=== PATIENT | female | born 1995 | race Caucasian/White ===

== ENCOUNTER 2017-07-16 15:30 | Emergency (ER) | payer OTHER ==
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
[2017-07-16] MEDS ORDERED: NS 1,000 ML IV ONE (15:38)
[2017-07-16 16:28] LABS: % IMMATURE GRANULYOCYTES 0.3 % (0.0-1.1); ABSOLUTE IMMATURE GRANULOCYTES 0.04 10^3/uL (0.00-0.10); ADD DIFF? NO; ADD MORPH? NO; ADD SCAN? NO; ATYPICAL LYMPHOCYTE FLAG 0 (0-99); FRAGMENT RBC FLAG 40 (0-99); HEMATOCRIT 43.6 % (38.0-47.0); HEMOGLOBIN 15.5 g/dL (12.6-16.3); LEFT SHIFT FLG 0 (0-99); LIPEMIA HEMOLYSIS FLAG 90 (0-99); MEAN CELL HEMOGLOBIN 33.5 pg (27.9-34.1); MEAN CELL HEMOGLOBIN CONCENTR. 35.6 g/dL (32.4-36.7); MEAN CELL VOLUME 94.2 fL (81.5-99.8); MEAN PLATELET VOLUME 9.8 fL (8.7-11.7); PLATELET CLUMPS FLAG 20 (0-99); PLATELET COUNT 377 10^3/uL (150-400); RED BLOOD CELL COUNT 4.63 10^6/uL (4.18-5.33)
[2017-07-16] MEDS ORDERED: IOPAMIDOL (ISOVUE-300) 100 ML BTL ONE (16:29)
[2017-07-16 16:38] LABS: ANION GAP 15 mEq/L (8-16); CALCIUM 9.5 mg/dL (8.5-10.4); CARBON DIOXIDE 22 mEq/l (22-31); CHLORIDE 102 mEq/L (97-110); CREATININE 0.8 mg/dL (0.6-1.0); GLOMERULAR FILTRATION RATE > 60; GLUCOSE 76 mg/dL (70-100); POTASSIUM 4.2 mEq/L (3.5-5.2); SODIUM 139 mEq/L (134-144)
[2017-07-16] MEDS ORDERED: LET GEL TOPICAL 1 EA SYR TP ONE (17:14)
[2017-07-16] MEDS ORDERED: IBUPROFEN 600 MG TAB PO ONE (18:01)
[2017-07-16 19:16] VITALS: BP 136/72; PULSE 85; RESP 18; TEMP 98.4; O2SAT 97
== END 2017-07-16 19:12 | disposition home or self-care (01) ==
LOC: EDUNIT#
DX: S52.125A Nondisplaced fracture of head of left radius, initial encounter for closed fracture (principal); S70.211A Abrasion, right hip, initial encounter; S50.312A Abrasion of left elbow, initial encounter; S70.311A Abrasion, right thigh, initial encounter; S70.312A Abrasion, left thigh, initial encounter; T14.8XXA Other injury of unspecified body region, initial encounter; E86.9 Volume depletion, unspecified; V18.0XXA Pedal cycle driver injured in noncollision transport accident in nontraffic accident, initial encounter; Y92.828 Other wilderness area as the place of occurrence of the external cause; Y93.55 Activity, bike riding
CPT/HCPCS: Q9967

== ENCOUNTER 2018-06-25 11:53 | Inpatient (IN) | payer OTHER ==
[2018-06-25] MEDS ORDERED: NS 1,000 ML IV ONE ×2 (13:21→15:36)
--- NOTE | 2018-06-25 13:21 | EDPHY ---
General - History Smoking Status: Never smoked Time Seen by Provider: 06/25/18 13:07 Narrative: CHIEF COMPLAINT: Flu symptoms, murmur HISTORY OF PRESENT ILLNESS: Patient presents by private vehicle from [facility] with her mother. She complains of fever, back ache, body aches, malaise, runny nose , and that she was told she had a murmur today. She presented to [facility] the above complaints with a reported negative flu test. She was reportedly febrile there, 101.8. She was given ibuprofen at 12:45 p.m.. She states the symptoms have been present since Monday. They have been constant duration. [id number]. No chest pain. Dry, unproductive cough at times. No abdominal pain. No flank pain. Urinary complaints. No rash. She has some mild neck pain but no neck stiffness. She has a mild headache at times. No current headache. There were no other test performed there but they were concerned due to the murmur that was not appreciated prior to today. Denies any history of IV drug use. No recent dental surgery. No history of endocarditis or pericarditis. No other associated complaints or modifying factors. REVIEW OF SYSTEMS: 10 systems were reviewed and negative with the exception of the elements mentioned in the history of present illness. PCP: [facility] at SPECIALISTS: None PAST MEDICAL HISTORY: Infectious mononucleosis, anxiety, depression, anorexia, hip labrum injury PAST SURGICAL HISTORY: Labral repair SOCIAL HISTORY: Nonsmoker. 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 FAMILY HISTORY: Noncontributory EXAMINATION: General Appearance: Alert, no distress Head: normocephalic, atraumatic Eyes: Pupils equal and round, no conjunctival pallor or injection ENT, Mouth: Mucous membranes moist. Airway patent Neck: Normal inspection, supple, non-tender Respiratory: Lungs are clear to auscultation Cardiovascular: Regular rate and rhythm. Mild systolic murmur. Gastrointestinal: Abdomen is soft and nontender Back: Mild left-sided CVA tenderness. No midline tenderness. Neurological: A&O, nonfocal, normal gait Skin: Warm and dry, no rash Extremities: Nontender, no pedal edema Psychiatric: Mood and affect normal DIFFERENTIAL DIAGNOSES: Including but not limited to influenza, infectious mononucleosis, pharyngitis, UTI, pyelonephritis, pericarditis, myositis, endocarditis MDM: 1:20 p.m. Flu-like symptoms with reported fever at home, and patient was sent to our facility due to a new murmur auscultated at [facility] at earlier today. She is afebrile here. She is mildly tachypneic. She is not tachycardic and does not meet SIRS criteria. Abdominal exam is benign. Lungs are clear. The laboratory studies and chest x-ray ordered. Urinalysis ordered. I have discussed with Dr. Montesinos, and he will evaluate the patient. 2:00 p.m. CBC does reveal leukocytosis with a left shift, and urinalysis does reveal evidence of infection. Pyelonephritis is likely given the patient's complaint low back pain her fever and general malaise. 2:15 p.m. Patient has been evaluated by Dr. Montesinos. He has also consulted Infectious Disease and discussed the case with Dr. Murphy. Dr. Murphy will come evaluate the patient in the emergency department. She remains well-appearing and nontoxic. 2:[address] Montesinos has consulted Cardiology and echocardiogram has been ordered. 3:00 p.m. Echocardiogram has been completed but not yet interpreted. Patient remains awake and alert, no acute distress. Vital signs are stable with mild tachycardia. 3:35 p.m. Patient re-evaluated. She is now tachycardic with a heart rate of 115-120 beats per minute. She was not tachycardic at time of arrival. She is complaining of chills and shaking, and I have rechecked her temperature myself orally. It is 39.3 C. I have ordered 2nd L of IV fluid, IV pain medication and oral Flexeril at the request of patient mother. I do feel she will require admission the hospital at this time. Both patient and her mother comfortable this plan. 3:45 p.m. Case discussed with hospitalist Dr. Escobar Curiel. She will admit the patient to her service. She is admitted in stable condition. IV antibiotics were commenced after blood cultures. Second liter IV fluid is commenced. She is awake and alert. She is in no acute distress. Results of the echocardiogram are pending. SUPERVISION: Patient was evaluated and examined in conjunction with my secondary supervising physician as documented. We have both examined the patient. CONSULTATION: Infectious disease, Dr. Murphy [employer], Dr. Gonzalez ([facility]) Medical Decision Makin-lead EKG interpreted by me; official reading is in computer system. My interpretation is sinus rhythm rate 88 with probable early repolarization, normal intervals. PHYSICIAN DOCUMENTATION: The patient was evaluated and managed by the Physician Medical Lab Scientist and myself. I have reviewed the chart and agree with the findings and plan of care as documented. In addition, I examined the patient myself at 1445. History confirmed as fever and chills, back pain starting earlier middle of this week. Physical findings as follows: Systolic 2/6 murmur. 1407: Discussed with Dr. Murphy from ID, recommends blood cultures and echocardiogram, he will come to see her in the emergency department. 1420: Discussed with Dr. Gonzalez, echo ordered. 1445: Patient informed of plan, echo in progress. Seen by infectious disease Dr. Murphy in the emergency department. Admission for continued tachycardia in the setting of fever, probable pyelonephritis. I am the secondary supervising physician. (Donato Montesinos) - Diagnostics Imaging Results: Imaging Impressions Chest X-Ray 06/25/18 13:22 Impression: Clear lungs. No pneumonia or effusion. - Objective Vital Signs: Initial Vital Signs Temperature (C) 36.8 C 06/25/18 12:07 Heart Rate 96 06/25/18 12:07 Respiratory Rate 22 H 06/25/18 12:07 Blood Pressure 130/72 H 06/25/18 12:07 O2 Sat (%) 97 06/25/18 12:07 O2 Delivery Mode Room Air Allergies/Adverse Reactions: No Known Allergies Allergy (Unverified 06/25/18 12:09) Home Medications: Medication Instructions Recorded Lexapro 07/16/17 Lo Loestrin Fe 1-10 Tablet 07/16/17 Laboratory Results: Laboratory Results 06/25/18 13:35 06/25/18 13:35 06/25/18 06/25/18 06/25/18 13:35 13:35 13:35 WBC RBC Hgb Hct MCV MCH MCHC RDW Plt Count MPV Neut % (Auto) Lymph % (Auto) Blanco % (Auto) Eos % (Auto) Baso % (Auto) Nucleat RBC Rel Count Absolute Neuts (auto) Absolute Lymphs (auto) Absolute Monos (auto) Absolute Eos (auto) Absolute Basos (auto) Absolute Nucleated RBC Immature Gran % Immature Gran # Sodium 138 mEq/L mEq/L (135-145) Potassium 4.0 mEq/L mEq/L (3.3-5.0) Chloride 102 mEq/L mEq/L (97-110) Carbon Dioxide 26 mEq/l mEq/l (22-31) Anion Gap 10 mEq/L mEq/L (8-16) BUN 10 mg/dL mg/dL (7-23) Creatinine 0.7 mg/dL mg/dL (0.6-1.0) Estimated GFR > 60 Glucose 85 mg/dL mg/dL (70-100) Calcium 9.0 mg/dL mg/dL (8.5-10.4) Total Bilirubin 0.9 mg/dL mg/dL (0.1-1.4) Conjugated Bilirubin 0.3 mg/dL mg/dL (0.0-0.5) Unconjugated Bilirubin 0.6 mg/dL mg/dL (0.0-1.1) AST 34 IU/L IU/L (14-46) ALT 32 IU/L IU/L (9-52) Alkaline Phosphatase 69 IU/L IU/L (38-126) Total Protein 6.7 g/dL g/dL (6.3-8.2) Albumin 3.7 g/dL g/dL (3.5-5.0) Beta HCG, Qual NEGATIVE Urine Color Urine Appearance Urine pH Ur Specific [place] Urine Protein Urine Ketones Urine Blood Urine Nitrate Urine Bilirubin Urine Urobilinogen Ur Leukocyte Esterase Urine RBC Urine WBC Ur Epithelial Cells Urine Bacteria Hyaline Casts Urine Mucus Urine Glucose Nasal Influenza A PCR NEGATIVE FOR FLU A (NEGATIVE) Nasal Influenza B PCR NEGATIVE FOR FLU B (NEGATIVE) Monoscreen NEGATIVE (NEGATIVE) Group A Strep Screen NEGATIVE (NEGATIVE) 06/25/18 06/25/18 13:35 12:30 WBC 16.20 10^3/uL H 10^3/uL (3.80-9.50) RBC 4.52 10^6/uL 10^6/uL (4.18-5.33) Hgb 14.8 g/dL g/dL (12.6-16.3) Hct 42.7 % % (38.0-47.0) MCV 94.5 fL fL (81.5-99.8) MCH 32.7 pg pg (27.9-34.1) MCHC 34.7 g/dL g/dL (32.4-36.7) RDW 12.9 % % (11.5-15.2) Plt Count 269 10^3/uL 10^3/uL (150-400) MPV 11.0 fL fL (8.7-11.7) Neut % (Auto) 84.3 % H % (39.3-74.2) Lymph % (Auto) 8.1 % L % (15.0-45.0) Blanco % (Auto) 7.0 % % (4.5-13.0) Eos % (Auto) 0.0 % L % (0.6-7.6) Baso % (Auto) 0.2 % L % (0.3-1.7) Nucleat RBC Rel Count 0.0 % % (0.0-0.2) Absolute Neuts (auto) 13.66 10^3/uL H 10^3/uL (1.70-6.50) Absolute Lymphs (auto) 1.31 10^3/uL 10^3/uL (1.00-3.00) Absolute Monos (auto) 1.14 10^3/uL H 10^3/uL (0.30-0.80) Absolute Eos (auto) 0.00 10^3/uL L 10^3/uL (0.03-0.40) Absolute Basos (auto) 0.03 10^3/uL 10^3/uL (0.02-0.10) Absolute Nucleated RBC 0.00 10^3/uL 10^3/uL (0-0.01) Immature Gran % 0.4 % % (0.0-1.1) Immature Gran # 0.06 10^3/uL 10^3/uL (0.00-0.10) Sodium Potassium Chloride Carbon Dioxide Anion Gap BUN Creatinine Estimated GFR Glucose Calcium Total Bilirubin Conjugated Bilirubin Unconjugated Bilirubin AST ALT Alkaline Phosphatase Total Protein Albumin Beta HCG, Qual Urine Color YELLOW Urine Appearance HAZY Urine pH 6.0 (5.0-7.5) Ur Specific [place] 1.004 (1.002-1.030) Urine Protein NEGATIVE (NEGATIVE) Urine Ketones NEGATIVE (NEGATIVE) Urine Blood 1+ H (NEGATIVE) Urine Nitrate NEGATIVE (NEGATIVE) Urine Bilirubin NEGATIVE (NEGATIVE) Urine Urobilinogen NEGATIVE EU EU (0.2-1.0) Ur Leukocyte Esterase 3+ H (NEGATIVE) Urine RBC 1-3 /hpf /hpf (0-3) Urine WBC 15-25 /hpf H /hpf (0-3) Ur Epithelial Cells TRACE /lpf /lpf (NONE-1+) Urine Bacteria 1+ /hpf H /hpf (NONE SEEN) Hyaline Casts 1-5 /lpf /lpf (0-1) Urine Mucus TRACE /lpf /lpf (NONE-1+) Urine Glucose NEGATIVE (NEGATIVE) Nasal Influenza A PCR Nasal Influenza B PCR Monoscreen Group A Strep Screen Medications Given: Discontinued Medications Acetaminophen (Tylenol) 650 mg PO EDNOW ONE Stop: 06/25/18 15:42 Last Admin: 06/25/18 15:47 Dose: 650 mg Cyclobenzaprine HCl (Flexeril) 10 mg PO EDNOW ONE Stop: 06/25/18 15:42 Last Admin: 06/25/18 15:48 Dose: 10 mg Fentanyl (Sublimaze) 100 mcg IVP EDNOW ONE Stop: 06/25/18 15:42 Last Admin: 06/25/18 15:48 Dose: 100 mcg Sodium Chloride (Ns) 1,000 mls @ 0 mls/hr IV EDNOW ONE; Wide Open PRN Reason: Protocol Stop: 06/25/18 13:22 Last Admin: 06/25/18 13:47 Dose: 1,000 mls Ceftriaxone Sodium/Dextrose (Rocephin 1 Gm (Premix)) 50 mls @ 100 mls/hr IV EDNOW ONE PRN Reason: Protocol Stop: 06/25/18 14:58 Last Admin: 06/25/18 15:10 Dose: 50 mls Sodium Chloride (Ns) 1,000 mls @ 0 mls/hr IV EDNOW ONE; Wide Open PRN Reason: Protocol Stop: 06/25/18 15:37 Last Admin: 06/25/18 15:48 Dose: 1,000 mls Departure - Departure Disposition: [facility] Inpatient Acute Clinical Impression: Acute pyelonephritis Condition: Good
--- NOTE | 2018-06-25 13:37 | CPEKG ---
Test Reason : OPEN Blood Pressure : / mmHG Vent. Rate : 088 BPM Atrial Rate : 088 BPM P-R Int : 126 ms QRS Dur : 087 ms QT Int : 355 ms P-R-T Axes : 043 054 011 degrees QTc Int : [address] elev, probable normal early repol pattern Confirmed by Donato Montesinos ([id number]) on 06/25/2018 1:36:48 PM Referred By: Confirmed By:Donato Montesinos
[2018-06-25 13:57] LABS: PLATELET COUNT 269 10^3/uL (150-400)
[2018-06-25] MEDS ORDERED: ACETAMINOPHEN 325 MG TAB PO ONE (15:41)
[2018-06-25] MEDS ORDERED: fentaNYL 100 MCG/2 ML INJ IVP ONE (15:41)
[2018-06-25] MEDS ORDERED: CYCLOBENZAPRINE 10 MG TAB PO ONE (15:41)
--- NOTE | 2018-06-25 16:14 | ECHO ---
[email or web address] [address] Main: [phone] Fax: Transthoracic Echocardiogram Name: DAYSI COONEY MR#: [id number] Study Date: 06/25/2018 Study Time: 02:31 PM Date of : 1995 Age: 23 year(s) Height: 175.3 cm (69 in.) Weight: 66.68 kg (147 lb.) BSA: 1.81 m2 Gender: Female Examination: Echo Indication: Heart murmur and fever Image Quality: Contrast: Requested by: Donato Montesinos BP: 137 mmHg/78 mmHg Heart Rate: Rhythm: Indication: Heart murmur and fever Procedure Staff Animal Bounty Hunter: Marylu Hayden RDCS Reading Physician: Lemuel Dunn MD Requesting Provider: Conclusions: Normal size left ventricle. Global hypercontractility of the left ventricle. The ejection fraction is estimated to be 70-75 %. No regional wall motion abnormality. Normal diastolic LV function. There are no significant valvular abnormalities. No transthoracic echocardiographic evidence of vegetations. Measurements: Chambers Valvular Assessment AV/MV Valvular Assessment TV/PV Normal Normal Normal Name Value Range Name Value Range Name Value Range Ao Magali (MM): 2.7 cm (2.2 cm-3.7 AV Vmax: 2.02 m/s (1 m/s-1.7 cm) m/s) IVSd (2D): 0.9 cm (0.6 cm-1.1 AV maxP mmHg ( - ) cm) AV meanP mmHg ( - ) LVDd (2D): 5.0 cm (3.9 cm-5.3 LVOT Vmax: 1.28 m/s (0.7 m/s-1.1 cm) m/s) LVDs (2D): 3.2 cm (2.1 cm-4 NICOLE (Vmax): 1.8 cm2 ( - ) cm) NICOLE (VTI): 1.7 cm ( - ) LVPWd (2D): 0.9 cm ( - ) MV E Vmax: 1.46 m/s ( - ) LVOTd 1.9 cm 1.9 cm mm MV A Vmax: 0.80 m/s ( - ) LVEF (MOD4): 68 % (>=55 %) MV E/A: 1.82 ( - ) EF Range: 70-75 % Continued Measurements: Chambers Valvular Assessment AV/MV Name Value Name Value LADs: 3.0 cm MV E/E' Septal: 14.20 Patient: DAYSI COONEY Study Date: 06/25/2018 Page 1 of 2 02:31 PM LADs Lon.7 cm MV E/E' Lateral: 8.40 LA Area: 19.7 cm2 Additional Vessels Name Value Ao Ascendin.4 cm Findings: Left Ventricle: Normal size left ventricle. No LV hypertrophy. Global hypercontractility of the left ventricle. The ejection fraction is estimated to be 70-75 %. No regional wall motion abnormality. Normal diastolic LV function. Right Ventricle: Normal size right ventricle. Left Atrium: The left atrium is normal in size. Right Atrium: The right atrium is normal in size. Mitral Valve: The mitral valve is normal in appearance and function. Trivial mitral valve regurgitation. Aortic Valve: The aortic valve is normal in appearance and function. The aortic valve is tri-leaflet. AV max PG is 16mmHG. AV mean PG is 9mmHG.. Tricuspid Valve: The tricuspid valve is normal in appearance and function. Pulmonic Valve: The pulmonic valve is normal in appearance and function. Aorta: The aorta is normal. Pericardium: No pericardial effusion. (No Signature Object) Patient: DAYSI COONEY Study Date: 06/25/2018 Page 2 of 2 02:31 PM [id number]
[2018-06-25] MEDS ORDERED: oxyCODONE IR 5 MG TAB PO PRN (17:51)
[2018-06-25] MEDS ORDERED: PROMETHAZINE HCL 25 MG/ML INJ IVP PRN (17:51)
[2018-06-25] MEDS ORDERED: ONDANSETRON DISINTEGRATING 4 MG TAB PO PRN (17:51)
[2018-06-25] MEDS ORDERED: ONDANSETRON 4 MG/2 ML VIAL IVP PRN (17:51)
--- NOTE | 2018-06-25 18:15 | GCON ---
INFECTIOUS DISEASES CONSULTATION DATE OF CONSULTATION: 06/25/2018 REFERRING PHYSICIAN: Donato Montesinos MD REASON FOR CONSULTATION: Fever. HISTORY OF PRESENT ILLNESS: The patient is a 23-year-old female with a past medical history of low b ack pain, whom I am asked to see in consultation for fever, rigors, and back pain. The patient repor ts moving her bed away from the wall on Monday preceding onset of symptoms to allow for exterminatio n of beetles in her residence, at which point in time she developed back pain after moving her bed. The pain was localized in the left lower back. Approximately 2 days after moving her bed, she develo ped onset of fever and shaking chills. This was associated with headache, diffuse myalgias, arthralg ias, and poor oral intake. She also had nasal congestion and mild sore throat. No cough or shortnes s of breath. The patient was seen at [facility] earlier today and noted to have the above symptoms, and on physical examination, a heart murmur was noted, which was not felt to be present previously. This raised concern for endocarditis. The patient did have a routine dental cleaning at the end of A ugust. No preceding valvular disease. The patient has not had dysuria, urgency or frequency. She d oes not note significant nausea, vomiting, diarrhea or abdominal pain. She previously has had pain i n the left lower back, which was relieved with skin care consultant. 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 Recent triathlons have included swimming and reservoirs in [place], [place], and [place]. She does note occasional swallowing of water. She has not noted any injuries in terms of cuts or scrapes. She does pick at h er skin periodically. No oral or vaginal ulcerations. No ill contacts. Upon presentation in the emergency department, the patient did have a temperature recorded at 39.3, w ith tachycardia. Echocardiogram was performed in the emergency department, which shows an ejection f raction of 70-75 percent, without regional wall motion abnormality; no significant valvular abnormali ties or vegetations were noted. The patient's chest x-ray showed no infiltrate. Blood testing showe d evidence of leukocytosis with left shift, with normal chemistry profile. Urinalysis showed 15-25 w janny blood cells and 1+ bacteria. Influenza testing by PCR was negative. Group A strep screen of th e throat was negative, and mono screen was negative. The patient was given a dose of ceftriaxone emp irically with concern for pyelonephritis and has been admitted for further care. I am now asked to a ssist in her ongoing management. PAST MEDICAL HISTORY: Vitiligo, anorexia, depression/anxiety, history of low back pain, pelvic infla mmatory disease, mononucleosis. Patient notes all of her usual childhood vaccinations. PAST SURGICAL HISTORY: Labral hip repair. MEDICATIONS: Prior to admission: Oral contraceptive, fluvoxamine, clonazepam p.r.n. ALLERGIES: No known drug allergies. SOCIAL HISTORY: Patient does not smoke. She drinks alcohol occasionally and at times in binge fashi on. No drug use. 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 No recent travel. No animal exposure. FAMILY HISTORY: Noncontributory to presentation. REVIEW OF SYSTEMS: Outside that noted in the HPI, the remainder of 10-system review is unremarkable. PHYSICAL EXAMINATION: VITAL SIGNS: Temperature 39.3, heart rate 103, respiratory rate 14, blood pre ssure 126/52, oxygen saturation 97% on room air. GENERAL: Patient is well nourished and well develo ped. She has rigors present and appears ill. HEENT: There is no scleral icterus, conjunctival inje ction, or conjunctival petechiae. Oropharynx shows moist mucous membranes, with dentition being in g ood repair. There is no nasal discharge. There is no tenderness over the sinuses. There is no nasa l discharge. NECK: Supple, without palpable lymphadenopathy or thyromegaly. No point tenderness ov er the C-spine. No meningismus. CHEST: Clear to auscultation bilaterally, without adventitious nadia nds. The respiratory effort is normal. CARDIOVASCULAR: Tachycardic, with a 2/[address] rd throughout. No gallops or rubs are noted. ABDOMEN: Soft, nontender, nondistended. There is no palpable organomegaly. Bowel sounds are present. MUSCULOSKELETAL: There is no cyanosis, clubbing, or edema. There is tenderness over the left sacroiliac joint to palpation. BACK: There is no CVA t enderness bilaterally. SKIN: There are no stigmata of endocarditis. The skin is diffusely warm to palpation. There is a small, healing blood blister over the left 4th toe. No other rashes noted. N EUROLOGIC: Patient is alert and interacts appropriately with examiner. Cranial nerves 2-12 are dewayne sly intact. Sensation is grossly intact. Muscle tone and bulk are normal. LABORATORY DATA: White blood cell count 16.2, hematocrit 42.7, platelets 269, neutrophils 84%. Seru m creatinine 0.7, bicarb 26, AST 34, ALT 32, bilirubin 0.9, alkaline phosphatase 69, albumin 3.7. Be ta HCG is negative. Urinalysis shows 15-25 white blood cells with 1-3 red blood cells and 1+ bacteri a. Influenza testing by PCR is negative. Chest x-ray shows no evidence of pneumonia. Echocardiogram as outlined above. EKG shows ND interval of 0.12. IMPRESSION: Fever and leukocytosis: This is in combination with left-sided sacroiliac pain, raising possibility of sacroiliitis. Infectious considerations of sacroiliitis would include primarily orga nisms spread with concomitant bacteremia, such as Staphylococcus aureus. Brucellosis or tuberculosis also can be associated with sacroiliitis, but patient does not have discrete risk factors for either of these entities. Pyelonephritis remains in the differential diagnosis given pyuria, and potential ly that pain in the sacroiliac region is referred from left flank. Other diagnostic considerations w ould include leptospirosis, although this typically does not cause sacroiliitis, but she is at risk b y swimming in reservoirs. Other pathogens, such as enteric hector could also be acquired by swimming in reservoirs, and rarely, organisms such as salmonella can cause sacroiliitis. Transthoracic echoca rdiogram does not show findings to suggest endocarditis, although this does not fully rule this out b ased on its sensitivity being limited. Other potential considerations would include viral syndrome, although with leukocytosis and left shift seems less likely. RECOMMENDATIONS: 1. Agree with empiric ceftriaxone pending blood and urine cultures. 2. MRI of pelvis to assess further for sacroiliitis or other consideration, such as psoas abscess. 3. Check leptospira antibodies. 4. Check [id number]. 5. Further decision making and diagnostic testing based on blood culture results as potentially thes e will be positive, which will further guide decision making. 6. Thank you for this consultation. We will continue to follow the patient with you. /[id number]/MODL
[2018-06-25] MEDS ORDERED: GADOBUTROL 10 ML VIAL IVP ONE (18:25)
--- NOTE | 2018-06-25 18:46 | GHP ---
DATE OF ADMISSION: 06/25/2018 CHIEF COMPLAINT: Back pain and fevers. HISTORY: This is a 23-year-old female with a past medical history that includes anxiety and depressi on, as well as back pain that has been present for about 1 year, who presents with complaints of feve r, back pain, neck pain, generalized body aches and shaking chills that have been present for about t he last week. The patient notes she has had fevers up to 103 over the last 7 days. She was seen at [facility] where they had concerns that she had a murmur that had not been appreciated in the past an d she was sent to the emergency room for further workup. She denies any abdominal pain, nausea, vomi ting, urinary complaints. She denies any rash. She notes she has some neck pain and headache, but n o confusion and no significant neck stiffness. She denies any history of IV drug use or recent surge ry. She has never had similar symptoms in the past. In terms of her back pain, it is treated genera lly by a chiropractor and has been thought to be a bulging disk, but she is not certain that she has had imaging in the past. PAST MEDICAL HISTORY: Includes: 1. Anxiety. 2. Depression. 3. 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 4. Vitiligo. 5. Elevated LFTs of uncertain etiology. 6. Iron deficiency anemia. 7. Right labral tear. PAST SURGICAL HISTORY: Labral repair. SOCIAL HISTORY: Patient is a nonsmoker. She drinks socially. She denies IV drug use. 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 FAMILY HISTORY: Reviewed and noncontributory. REVIEW OF SYSTEMS: A 10-point review of systems obtained and negative except as per HPI. HOME MEDICATIONS: Include Lexapro and control tablets. ALLERGIES: No known drug allergies. PHYSICAL EXAM: VITAL SIGNS: BP 126/52, heart rate 103, respiratory rate 14, O2 sats 97% on room air , temperature is 39.2. GENERAL: The patient is flushed and ill appearing. She is rigoring in bed. EYES: Anicteric. HENT: Oropharynx clear. NECK: Supple with some mild tenderness in the lateral region, but no clear lymphadenopathy. CARDIOVASCULAR: Tachycardic, regular, systolic murmur appreci ated. ABDOMEN: Soft, nontender. Positive bowel sounds. EXTREMITIES: No clubbing, cyanosis, or ed juan. SKIN: Warm, dry, well perfused. NEURO/PSYCH: Oriented and appropriate. CLINICAL DATA: Labs reviewed notable for white blood cell count of 16.2, hematocrit of 42.7, platele ts of 269. Chemistry including LFTs are unremarkable. Beta HCG is negative. UA shows 3+ leuk joy ase, 15-25 white blood cells, 1+ bacteria. Nasal influenza was negative for flu A and B. Strep scre en was negative. Brown screen was negative. Chest x-ray personally reviewed and interpreted, showing clear lungs. EKG, personally reviewed and interpreted, shows sinus rhythm, rate of 85, early repolarization abnorm ality. Echocardiogram showing EF of 70% to 75%. No regional wall motion abnormality. Valves all normal in appearance without evidence of endocarditis. ASSESSMENT/PLAN: This is a 23-year-old female presenting with sepsis and presumed pyelonephritis. 1. Sepsis, presumed to be urinary source without other clear source identified at this time. She do es have significant back pain, although this has been present for 1 year. She has been started on ce ftriaxone and blood cultures and urine cultures are pending. ID has been consulted. 2. Heart murmur with a normal echocardiogram showing no significant valvular abnormalities and no ve getations. She is noted to be showing global hypercontractility and perhaps that is the reason for h er notable murmur. We will monitor her on telemetry for the time being given her continued tachyarrh ythmia. 3. Back pain. This is relatively severe and somewhat unusual for diagnosis of pyelonephritis. Her pain is more located in the lumbosacral region. Consider imaging of the pelvis to rule out other anthony ology for her infectious process. This was discussed with ID. 4. Disposition: Inpatient status. Given severity of patient's presenting illness, suspect she will need greater than 48-hour stay for evaluation and management of above. 5. Patient is new to my care. Old records reviewed summarized as per HPI and past medical history. Care plan reviewed with patient's mother present at bedside and further history obtained from her. Care plan reviewed with ER physician and infectious disease doctor. /[id number]/MODL
[2018-06-25] MEDS: HYDROCODONE/APAP 5/325 TAB PO PRN (20:06)
[2018-06-25] MEDS: LORazepam 0.5 MG TAB PO PRN (20:09)
[2018-06-25] MEDS ORDERED: clonazePAM 0.5 MG TAB PO PRN (20:15)
[2018-06-26] MEDS: ACETAMINOPHEN 325 MG TAB PO PRN (00:31)
[2018-06-26] MEDS: CYCLOBENZAPRINE 10 MG TAB PO PRN ×3 (00:31→20:52)
[2018-06-26] MEDS: HYDROCODONE/APAP 5/325 TAB PO PRN ×3 (02:05→16:37)
[2018-06-26] MEDS: IBUPROFEN 200 MG TAB PO PRN (02:05)
[2018-06-26] MEDS ORDERED: LIDOCAINE 2% VISCOUS 15 ML UDCUP PO PRN (02:30)
[2018-06-26] MEDS ORDERED: MAG HYDROX/AL HYDROX/SIMETH 30 ML UDCUP PO PRN (02:31)
[2018-06-26] MEDS: NS 1,000 ML IV SCH ×3 (04:10→22:04)
[2018-06-26 04:20] LABS: PLATELET COUNT 235 10^3/uL (150-400)
[2018-06-26] MEDS: ERTAPENEM 1 GM in NS 100 ML IV SCH (08:31)
--- NOTE | 2018-06-26 09:11 | PDMN ---
Medical Necessity Medical necessity: MCG M300 UTI- pyelonephritis with sepsis,- fever , tachycardia, leukocytosis, sig. back pain. fever, neck pain, generalized body aches, shaking, chills, X 7 days. pt also with murmur anticipate > 2 MN ongoing med nec care,-IVF, IV abx, and further eval for above.
[2018-06-26] MEDS ORDERED: MEPERIDINE 25 MG/0.5 ML AMP IVP ONE (10:47)
[2018-06-26] MEDS: ETHINYL ESTRADIOL PO SCH (11:23)
[2018-06-26] MEDS: LEVONORGESTREL PO SCH (11:23)
[2018-06-26] MEDS ORDERED: PHENOL 177 ML THROAT SPRAY PO PRN (12:00)
[2018-06-26] MEDS: guaiFENesin 600 MG TAB.ER PO SCH ×2 (12:40→20:53)
[2018-06-26 12:46] LABS: INR 1.16 (0.83-1.16)
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
--- NOTE | 2018-06-26 16:33 | ASMTCMCOM ---
CM Note CM Note Notes: Patient plan of care reviewed in rounds. 23 year old female admitted via ED with pyelonephritis Mother at bedside. No needs identified at present time. CM available should needs arise. Plan: Likely dc independently when medically cleared for discharge. Date Signed: 06/26/2018 04:33 PM Electronically Signed By:Mini Do RN
[2018-06-26] MEDS: SENNOSIDES/DOCUSATE SODIUM TAB PO SCH (20:52)
[2018-06-26] MEDS: LORazepam 0.5 MG TAB PO PRN (20:53)
[2018-06-27] MEDS: HYDROCODONE/APAP 5/325 TAB PO PRN (01:27)
[2018-06-27] MEDS: NS 1,000 ML IV SCH ×2 (07:34→16:21)
[2018-06-27] MEDS: ERTAPENEM 1 GM in NS 100 ML IV SCH (08:39)
[2018-06-27] MEDS: guaiFENesin 600 MG TAB.ER PO SCH ×2 (08:39→20:56)
[2018-06-27] MEDS: POLYETHYLENE GLYCOL 3350 17 GM PKT PO PRN (08:39)
[2018-06-27] MEDS: SENNOSIDES/DOCUSATE SODIUM TAB PO SCH ×2 (08:44→20:56)
[2018-06-27] MEDS: ACETAMINOPHEN 325 MG TAB PO PRN ×2 (08:52→15:48)
[2018-06-27] MEDS: ETHINYL ESTRADIOL PO SCH ×2 (08:55→15:49)
[2018-06-27] MEDS: LEVONORGESTREL PO SCH ×2 (08:55→15:49)
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
[2018-06-27] MEDS: IBUPROFEN 200 MG TAB PO PRN (13:25)
[2018-06-27 13:40] LABS: GC AMPLIFICATION GENPROBE NEGATIVE (NEGATIVE)
[2018-06-27] MEDS: MAGNESIUM HYDROXIDE 30 ML UDCUP PO PRN (15:48)
[2018-06-27] MEDS: LIDOCAINE 4%/MENTHOL 1% PATCH TD SCH ×2 (16:45→18:30)
[2018-06-27] MEDS: BACILLUS COAGULANS PO SCH (18:27)
[2018-06-27] MEDS: DAILY VITE PO SCH (18:27)
[2018-06-27] MEDS: LORazepam 0.5 MG TAB PO PRN (20:55)
[2018-06-28] MEDS: HYDROCODONE/APAP 5/325 TAB PO PRN (03:15)
[2018-06-28] MEDS: NS 1,000 ML IV SCH (03:16)
[2018-06-28] MEDS: POLYETHYLENE GLYCOL 3350 17 GM PKT PO PRN ×2 (03:39→08:47)
[2018-06-28] MEDS: PATCH REMOVAL 1 EA PATCH TD SCH ×2 (03:41→22:46)
[2018-06-28] MEDS: SENNOSIDES/DOCUSATE SODIUM TAB PO SCH ×2 (08:47→21:07)
[2018-06-28] MEDS: LIDOCAINE 4%/MENTHOL 1% PATCH TD SCH (08:47)
[2018-06-28] MEDS: MAGNESIUM HYDROXIDE 30 ML UDCUP PO PRN (08:47)
[2018-06-28] MEDS: guaiFENesin 600 MG TAB.ER PO SCH ×2 (08:48→21:09)
[2018-06-28] MEDS: LEVONORGESTREL PO SCH (08:57)
[2018-06-28] MEDS: ETHINYL ESTRADIOL PO SCH (08:57)
[2018-06-28] MEDS: DAILY VITE PO SCH (08:58)
[2018-06-28] MEDS: ACETAMINOPHEN 325 MG TAB PO PRN ×2 (09:05→21:07)
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
[2018-06-28] MEDS: LORazepam 0.5 MG TAB PO PRN (11:08)
--- NOTE | 2018-06-28 11:16 | ASMTLCPROG ---
Notes Note: Notes: Responded to TLC Stat request/page for this pt. Spoke briefly with nurse, Jessica for clarifying criteria for a TLC Stat request. Asked nurse if pt had verbalized any suicidal ideation/intent/plans to harm self and nurse reported that pt did not. Asked nurse if pt had verbalized any homicidal ideation/intent/plans to harm someone else and nurse reported that pt did not. Clarified [facility] protocol/policy regarding TLC Stat requests. [facility] arrived on unit with copy of protocol for educating purposes. Date Signed: 06/28/2018 11:14 AM Electronically Signed By:Sagar Malone
[2018-06-28] MEDS: BACILLUS COAGULANS PO SCH ×2 (11:20→21:09)
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
[2018-06-29 08:10] VITALS: BP 125/73
[2018-06-29] MEDS: SENNOSIDES/DOCUSATE SODIUM TAB PO SCH (08:39)
[2018-06-29] MEDS: DAILY VITE PO SCH (08:40)
[2018-06-29] MEDS: BACILLUS COAGULANS PO SCH (08:42)
[2018-06-29] MEDS: LEVONORGESTREL PO SCH (08:42)
[2018-06-29] MEDS: ETHINYL ESTRADIOL PO SCH (08:42)
[2018-06-29] MEDS ORDERED: SULFAMETHOX/TMP 800/160 MG 1 TAB PO SCH (09:30)
[2018-06-29] MEDS: guaiFENesin 600 MG TAB.ER PO SCH (09:31)
[2018-06-29] MEDS: LIDOCAINE 4%/MENTHOL 1% PATCH TD SCH (09:31)
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
--- NOTE | 2018-06-29 10:25 | ASMTLACE ---
BAYLEE Length of stay for Answers: 3 days current admission Acuity / Level of Answers: Yes Care: Did the patient have an inpatient admission? Comorbidities - select Answers: Other Notes: PID, pylonephritis all that apply # of Emergency department Answers: 1-2 visits in the last 6 months Social determinants Answers: Mental health diagnosis (anxiety, depression, pers onality disorders, etc.) Score: 11 Date Signed: 06/29/2018 10:24 AM Electronically Signed By:Mini Do RN
--- NOTE | 2018-06-29 10:28 | ASMTCMCOM ---
CM Note CM Note Notes: Patient has been medically cleared for discharge to home. She was provided resources for follow up for mental health at her school. No other needs identified from a CM perspective at this time. Independent. Plan: Dc to home. Date Signed: 06/29/2018 10:27 AM Electronically Signed By:Mini Do RN
--- NOTE | 2018-07-03 12:18 | PQFORM ---
PHYSICIAN QUERY FORM Needs Your Response This query form is being sent to you to assure this patient record is coded properly. Please respond to the question below: [employer]ER QUESTION: Dear Dr. Calvillo, In reviewing this patients medical record, it is noted that the patient held the diagnosis of "sepsis." Patient presented to ER with Fever, malaise with a WBC of 16.20. In the H&P, patient was diagnosed with "sepsis and presumed pyelonephritis." In the Medical Necessity note patient had "UTI w/ sepsis." In the Progress notes dated 06/26-06/28 patient was noted to have "sepsis due to E Coli." After study, should the diagnosis of "Sepsis" be included in the Discharge Summary? __x___ Yes No Unable to determine Other more appropriate diagnosis (please specify) Thank you [facility]. [phone] INSTRUCTIONS FOR RESPONSE: Answer question by clicking on the "Edit Document" button. Move cursor to area below the stars. When complete, hit "Save." Click on the "Sign" button, then click "Sign" again. Type in your PIN and hit "Enter." MTDD
== END 2018-06-29 10:56 | disposition home or self-care (01) | DRG 872 ==
LOC: F1N 17:28
PROVIDERS: ADMIT Internal Medicine; ATTEND Internal Medicine
DX: A41.51 Sepsis due to Escherichia coli [E. coli] (principal); N10 Acute pyelonephritis; E86.9 Volume depletion, unspecified; F41.8 Other specified anxiety disorders; L80 Vitiligo; Z91.410 Personal history of adult physical and sexual abuse
CPT/HCPCS: 86720-90; 86812-90; 96365; A9585; J0696; J1335; J2175; J2405; J3010

== ENCOUNTER 2018-10-22 10:08 | Emergency (ER) | payer OTHER ==
--- NOTE | 2018-10-22 11:03 | EDPHY ---
General - History Smoking Status: Current every day smoker Time Seen by Provider: 10/22/18 11:02 Narrative: CLINICAL IMPRESSION: Anxiety ASSESSMENT/PLAN: Patient is a 23-year-old female with a significant history of PTSD, anxiety and depression who presents with increased anxiety. Patient is afebrile and nontoxic -appearing, she is in no acute distress. Physical examination is unremarkable. Her vital signs were reviewed and no findings to suggest bacterial illness. negative, drug screen negative. Patient is here voluntarily and requesting behavioral health services. Patient has been under a significant amount of stress, was unable to get into her psychiatrist in his specifically looking for recommendations in changing her medication therapy as well as a work note. Patient was formally seen and evaluated by [facility] in the emergency department, she has no SI or HI. After formal evaluation, the patient was still able to contract for safety with a plan for close follow-up at [facility] as well as her psychiatrist; no indication for inpatient admission. On repeat exam the patient is well appearing with no additional concerns and is comfortable with plan. She is present with her mother, she does not feel in imminent danger to self or others. She understands that medication changes will need to be done under the direction of her psychiatrist. Return precautions discussed- she will return for worsening anxiety, SI, HI, increased or uncontrolled behaviors or for any other concerning symptom. Patient verbalizes understanding and is in agreement with plan. DIFFERENTIAL DX: Anxiety, depression, PTSD, insomnia, psychosis, intoxication ED COURSE: 1110: Case discussed with Dr. Jackson 1430: Discussed with . No findings to warrant inpatient admission. [facility] placed phone call to [facility] in arranged close follow-up. Unable to get in touch with patient's psychiatrist on multiple occasions. 1500: On re-evaluation the patient is well-appearing, she is present with her mother. Behavioral health consultation has been completed. Another phone call has been placed by them to their current psychiatrist, they understand they are able to go to [facility] into their walk-in clinic at any time. Patient was provided a work note for several days however understands the importance of follow-up for ongoing care and excuses. 1510: Discussed with Dr. Jackson CHIEF COMPLAINT: Anxiety and depression HPI: Patient is a 23-year-old female who presents to the emergency department with reports of escalating anxiety. Patient endorses significant stress, significant history of PTSD with escalating anxiety and difficulty sleeping. 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 Patient tried to get into her psychiatrist this morning however was unable to get an appointment. Patient discloses over the last month she has been on a new medication lamotrigine, she feels this medication is not helping her and would like to discuss medication changes. She has started tapering herself off of this medication. Patient is also been taking trazodone for sleep however she feels that this is not helping her. She reports getting approximately 4 hr of sleep per night. She denies any suicidal ideation or history of suicide attempt in the past. Patient denies any fever, headache, dizziness or any other physical complaints. She specifically requests on multiple occasions a note to excuse her from working as she feels that her late night schedule is affecting her sleep. PMH: PTSD, anxiety, depression Family History: Noncontributory Social History: Denies alcohol, smoking or illicit drug use. REVIEW OF SYSTEMS: All other systems negative Constitutional: No fever, no chills, appetite change. Eyes: No discharge, vision change ENT: No sore throat, congestion, ear pain. Cardiovascular: No chest pain, no palpitations. Respiratory: No cough, no shortness of breath. Gastrointestinal: No abdominal pain, no vomiting, diarrhea. Genitourinary: No hematuria, dysuria, flank pain, pelvic pain Musculoskeletal: No back pain, joint swelling, joint pain, myalgias. Skin: No rashes, color change. Neurological: No headache, dizziness, weakness. PHYSICAL EXAM: General Appearance: Well appearing, tearful however not toxic-appearing. HENT: Normocephalic, atraumatic. Bilateral external ears are normal. Bilateral tympanic membranes are normal with pearly watkins reflex. Nares are clear, mucosa is pink. Oropharynx is clear, uvula is midline. There is no tonsillar enlargement or exudate. The dentition is normal. Eyes: PERRLA, no acute vision change, nystagmus, swelling, discharge, pain or photosensitivity. Conjunctiva pink, no pallor or injection Neck: Supple, nontender, no lymphadenopathy, no midline pain, FROM, no meningismus. Respiratory: There are no retractions, lungs are clear to auscultation. Cardiac: Regular rate and rhythm, no murmurs or gallops. Gastrointestinal: Abdomen is soft, nontender, bowel sounds normal, no masses/ hernia, no rigidity, guarding or focal peritoneal findings. Neurological: Alert and oriented x 3, CN 2-12 grossly intact, normal gait no ataxia, DTR's intact, normal sensation and strength Skin: Warm, dry, no rashes, no nodules on palpation. Musculoskeletal: Extremities are symmetrical, full range of motion, no tenderness, deformity, swelling, or erythema. Psychiatric: Patient is oriented X 3, she is anxious and tearful. MEDICAL DECISION MAKING: Patient was seen independently. Secondary supervising physician at time of evaluation was Dr. Jackson, he did not evaluate this patient however her case and plan of care was discussed with him. Diagnosis: Anxiety. New, requires workup Summary: See Assessment and Plan for summary of ED visit Clinical lab tests: Yes, reviewed. Independent visualization of images, tracing, or specimens: Not applicable. Decision to obtain medical records or history from someone other than the patient: Yes, mother Review / Summarize previous medical records: No Discussed patient with another provider: Yes, Dr. Jackson Patient Progress: Stable, discharge. (Josee Barrientos) Medical Decision Making: I did not see this patient while she was in the emergency department. However her care was discussed with the PA while the patient was in the department. I agree with treatment plan and management (Ernesto Jackson) - Objective Vital Signs: Initial Vital Signs Temperature (C) 36.7 C 10/22/18 10:18 Heart Rate 76 10/22/18 10:18 Respiratory Rate 18 10/22/18 10:18 Blood Pressure 142/54 H 10/22/18 10:18 O2 Sat (%) 99 10/22/18 10:18 O2 Delivery Mode Room Air Allergies/Adverse Reactions: No Known Allergies Allergy (Verified 10/22/18 10:17) Home Medications: Medication Instructions Recorded Contol 1 tab PO DAILY 06/25/18 fluvoxaMINE MALEATE [Fluvoxamine 100 mg PO BID 06/25/18 Maleate] Bacillus Coagulans [Digestive 2 each PO BID 06/27/18 Advantage] Daily-Jose Miguel 1 tab PO DAILY 06/27/18 Lamotrigine 10/22/18 Departure - Departure Disposition: Home, Routine, Self-Care Clinical Impression: Anxiety Condition: Good Instructions: Post Traumatic Stress Disorder (ED), Generalized Anxiety Disorder (ED) Additional Instructions: DISCHARGE INSTRUCTIONS FROM YOUR DOCTOR Thank you for visiting our emergency department today. Please keep in mind that discharge from the emergency department does not mean that there is nothing wrong - it simply means that we have not identified an emergency condition that requires further evaluation or treatment in the hospital. You should always plan to follow up with primary care for re-evaluation of your condition in the next 2-3 days. Rest, healthy/regular sleep schedule, push fluids, healthy diet, regular exercise. Attempt to reduce stress. Pursue pleasurable, healthy activities. Surround yourself with loving, supportive, healthy friends and family. Stop smoking as soon as possible. Avoid drugs and alcohol. Re-establish counseling to help work through issues and develop good coping and behavioral strategies for stress reduction and symptom control. Follow-up with Larisa as we discussed. It is also important that she follow up with her psychiatrist for ongoing medication management and excused from work. Return for increased or unmanageable anxiety, severe depression, thoughts or plans to hurt yourself or someone else, for chest pain, shortness of breath, dizziness, fainting, rapid or irregular heart beat, sweating, vomiting, abdominal pain, back pain, tremor, seizure, mental status changes, or for any other new, worsening or worrisome symptoms. People present with illnesses and injuries in different ways, and it is always possible that we have missed something. You may always return for re-evaluation if symptoms worsen or if they are not improving or if you develop new/different symptoms. Again, thank you for choosing our emergency department. We hope that you feel better. Referrals: NONE *PRIMARY CARE P,. [Primary Care Provider] - As per Instructions Stand Alone Forms: Work Excuse
[2018-10-22 14:24] VITALS: BP 123/59
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
--- NOTE | 2018-10-22 16:06 | ASMTTCLDSP ---
TLC Discharge Disposition Disposition: Answers: Discharge If Answers: Yes DISCHARGED: Patient/family given suicide hotline info & SAMHSA brochure? Disposition Notes: Notes: The patient was offered voluntary mental health admission yet patient declined. The patient stated commitment or ability to keep self safe and denied thoughts of self harm or harm to others. The patient expressed a desire to f/u with [facility], [facility], and [facility]. The patient was given local hotline information and SAMSHA brochure after an attempt and encouraged to follow up with [facility], [facility], and [facility]. Discharge Concerns/Recommendations: Notes: In consultation with [facility] ED physician, Ernesto Jackson MD, and Josee Barrientos PA-C both concurred that the patient does not appear to meet 27-65 criteria requiring psychiatric hospitalization as patient does not appear to be an imminent risk of harm to self/others/gravely disabled due to a mental illness condition. Was patient given the Answers: Not applicable Inpatient Behavioral Health Prohibited Belongings List while in the ED? Date Signed: 10/22/2018 03:52 PM Electronically Signed By:Leanne Orr
== END 2018-10-22 15:26 | disposition home or self-care (01) ==
PROC: GZ11ZZZ Psychological Tests, Personality and Behavioral (ICD-10-PCS; principal; 2018-10-22)
DX: F41.9 Anxiety disorder, unspecified (principal); F32.9 Major depressive disorder, single episode, unspecified
CPT/HCPCS: 80307; G0480

== ENCOUNTER 2019-01-23 19:49 | Inpatient (IN) | payer BC, OTHER ==
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
[2019-01-23 20:11] LABS: PLATELET COUNT 335 10^3/uL (150-400)
--- NOTE | 2019-01-23 22:06 | CPEKG ---
Test Reason : OPEN Blood Pressure : / mmHG Vent. Rate : 080 BPM Atrial Rate : 080 BPM P-R Int : 135 ms QRS Dur : 076 ms QT Int : 385 ms P-R-T Axes : 047 052 027 degrees QTc Int : 445 ms Sinus rhythm Confirmed by Christopher Espinoza ([id number]) on 01/23/2019 10:05:59 PM Referred By: Christopher Espinoza Confirmed By:Christopher Espinoza
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
--- NOTE | 2019-01-24 09:28 | ASMTTCLDSP ---
TLC Discharge Disposition Disposition: Answers: Admit Disposition Notes: Notes: Admit to [facility]. Discharge Concerns/Recommendations: Notes: In consultation with [facility] ED physician, Isael Aranda MD and on-call psychiatric nurse practioner, Trent Esparza APN, both concurred that pt appears to meet 27-65 criteria requiring psychiatric hospitalization as pt appears to be at risk of harm to self due to a mental illness condition. Pt was read the Patient Rights and Responsibilities Statement on 01/24/19 at 0700 hrs, original placed on chart, and was given photocopy of Rights. Pt signed the Patient Rights. Pt was given the 3N prohibited belongings list while in the ED. Was patient given the Answers: Yes Inpatient Behavioral Health Prohibited Belongings List while in the ED? For inpatient Trent Esparza APN admission, the following psychiatrist agreed to accept patient for admission to Behavioral Health ([facility]): Type of Hold: Answers: M1/72-hour Hold Hold initiated by: Answers: Police Date Signed: 01/24/2019 09:28 AM Electronically Signed By:Sagar Malone
[2019-01-24] MEDS ORDERED: MAGNESIUM HYDROXIDE 30 ML UDCUP PO PRN (11:21)
[2019-01-24] MEDS ORDERED: ACETAMINOPHEN 325 MG TAB PO PRN (11:21)
[2019-01-24] MEDS ORDERED: MAG HYDROX/AL HYDROX/SIMETH 30 ML UDCUP PO PRN (11:21)
[2019-01-24] MEDS ORDERED: FLUoxetine 20 MG CAP PO SCH (12:15)
[2019-01-24] MEDS ORDERED: ALBUTEROL 60 PUFFS/8 GM MDI IH PRN (12:52)
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
[2019-01-24] MEDS: fluvoxaMINE MALEATE 50 MG TAB PO SCH ×2 (16:15→21:03)
--- NOTE | 2019-01-24 19:14 | PDMN ---
Medical Necessity Medical necessity: Pt meets inpt criteria per MD order and [facility], Major Depressive Disorder, Adult: Inpatient Care, 3 days. 23 y/o admitted w/major depressive disorder, recurrent, severe, w/anxious distress and PTSD, currently on M1 hold due to risk of harm to self, requires inpt psychiatric care b/c of current depression w/suicidal ideation and attempt by overdose.
[2019-01-24] MEDS ORDERED: clonazePAM 0.5 MG TAB PO SCH (21:00)
[2019-01-25 07:02] VITALS: BP 126/60
[2019-01-25] MEDS: fluvoxaMINE MALEATE 50 MG TAB PO SCH (08:58)
[2019-01-25] MEDS ORDERED: DROSPIRENONE PO SCH (09:00)
[2019-01-25] MEDS ORDERED: ETHINYL ESTRADIOL PO SCH (09:00)
--- NOTE | 2019-01-25 13:08 | BDS ---
[f rep st] BEHAVIORAL HEALTH DISCHARGE SUMMARY REASON FOR ADMISSION: From the ED note dated 01/23/19, patient with history of PTSD, anxiety, and depression arrived to the emergency department via EMS following reported benzodiazepine overdose. Patient was admitted involuntarily and on an M1 hold due to being a danger to herself. Patient was admitted for safety, crisis stabilization, and medication management. ADMITTING DIAGNOSES: 1. Major depressive disorder, recurrent episode, severe, with anxious distress. 2. Posttraumatic stress disorder. ADMISSION PHYSICAL EXAM: Patient was seen on 01/24/19, for history and physical consultation for medical clearance for inpatient psychiatric hospitalization and treatment. Patient was medically cleared for inpatient psychiatric hospitalization and treatment. For further details, please refer to consultation document dated 01/24/19. ADMISSION LABS: 1. CBC within normal limits. 2. BMP within normal limits except carbon dioxide was low at 18. POC total CO2 was low at 19. 3. Hemoglobin A1c within normal limits at 5.0. 4. Liver function within normal limits. 5. Lipid panel within normal limits except triglycerides were elevated at 446, cholesterol was elevated at 234, non-HDL cholesterol was elevated at 136, HDL cholesterol was elevated at 98. 6. Beta-hCG qualitative test was negative. 7. Toxicology screen was negative for all substances that were screened. Ethyl alcohol level 75. MAJOR PROCEDURES OR TESTS: Patient had an electrocardiogram completed on . Noted sinus rhythm. QTc interval 445 msec. HOSPITAL COURSE: The most prominent symptoms and behaviors while the patient was here were reports of severe anxiety and depression. Treatment modalities utilized were milieu and group therapy. Klonopin 0.5 mg p.o. q.h.s. was continued to target severe anxiety and panic, was tolerated with no report of side effects and with good response. Fluvoxamine 75 mg p.o. b.i.d. was continued to target mood symptoms, was tolerated with no report of side effects and with good response. Patient has improved considerably with no signs of psychiatric symptoms and no psychiatric symptoms expressed. Patient reports she has improved since admission, states to be in stable condition, feels safe to discharge, and she contracts for safety. Patients response to treatment was good. There were no adverse or unexpected results of treatment. The patient was safe throughout stay, active in treatment, engaged in groups, and was appropriate with staff. Patient met with treatment team prior to discharge to assess readiness to discharge and review discharge plan. The treatment team consensus is the patient in stable condition, has a safe discharge plan, and is ready to discharge today. CONDITION AT DISCHARGE: Patient is in stable condition and is no longer a danger to self or others, and is not gravely disabled due to mental illness. Patient is no longer in need of inpatient level of care, and can be safely and effectively treated within the community. The patients level of risk at time of discharge is low. MSE: The patient is casually dressed and with good hygiene , and looks stated age. Patient is sitting, posture is upright, and position is relaxed. Patient appears awake, alert, and responds appropriately and reasonably during interview. Patient is engaged, relates well to interviewer, and emotional facial expression is appropriate to situation and changes appropriately with topic. Patient is cooperative, makes comfortable eye contact , and movements are voluntary, deliberate, coordinated, and smooth and even with no inappropriate movements. Patient makes laryngeal sounds effortlessly and shares conversation appropriately; pace of conversation is appropriate, and stream of talking is fluent; articulation is clear and understandable; word choice is effortless and appropriate for education level; completes sentences, occasionally pausing to think; rate and volume are appropriate for interview and setting. Patient reports mood as euthymic. Patients affect is stable with full variable range, congruent with mood, and appropriate to speech and circumstances. Patient has linear and logical thinking, with no loose associations, tangential thought, thought blocking, concrete thinking, or any other signs of formal thought disorder. Patient denies suicidal and homicidal ideation, and denies hallucinations and delusions. Patient appears to be a reliable historian with sound judgement and good insight into current condition. Patient has no apparent dysfunction in recent or remote memory noted , and no evidence of gross cognitive dysfunction noted at any point during the interview. DISCHARGE DIAGNOSES: 1. Major depressive disorder, recurrent episode, severe, with anxious distress. 2. Posttraumatic stress disorder. CURRENT MEDICATIONS: After reviewing options, risks, and benefits with the patient, patient agrees to continue: 1. Klonopin 0.5 mg p.o. q. day p.r.n. for severe anxiety, panic. 2. Fluvoxamine 75 mg p.o. b.i.d. Patient requests prescriptions for these medications at time of discharge. Prescriptions for 28 days are provided. Prescriptions are written to be dispensed in 7-day supplies. Patient agrees with this plan as safety precaution. Prescriptions and medications are reviewed with the patient at time of discharge to ensure accuracy and patient understanding. DISPOSITION: Patient left hospital independently and voluntarily with her mother and plans to stay with her mother in [place], [place] after discharge. FOLLOWUP: regional sales coordinator reports the appropriate outpatient follow-up services have been established and outpatient appointments have been scheduled. The patient received written instructions with times and dates of outpatient follow-up appointments. The following follow-up recommendations were provided to the patient at discharge: Continue psychotropic medications as prescribed and attend appointments as scheduled. Report any side effects to a psychiatric outpatient provider, a primary care provider, or other health patient care representative. Address any questions or problems concerning the psychotropic medications with a psychiatric outpatient provider, a primary care provider, or other health patient care representative. Contact [facility] or [facility], or go to the nearest emergency room, if you are ever a danger to yourself/others, or unable to care for yourself. As soon as possible, establish a routine medication management treatment with a psychiatric provider, establish routine therapy appointments, and follow-up with a primary care provider. LEGAL COURSE: Patient was admitted on an M1 hold for involuntary inpatient psychiatric hospitalization and treatment. Patient discharged today independently and voluntarily. ATTITUDE AT TIME OF DISCHARGE: The patients attitude was positive at time of discharge, and patient reports looking forward to discharging today. The patient reports she feels safe to discharge, is no longer a danger to herself or others, is in stable condition, and contracts for safety. Patient states she will continue medications as prescribed, and establish medication management treatment with an outpatient provider after discharge. Patient reports she understands the information that has been provided to her, and she understands, accepts, and agrees to psychotropic medications. Patient describes internal protective factors as the coping skills she has learned while hospitalized here, and she plans to continue to practice these coping skills after discharge. LABS AND STUDIES: There were no pending labs or studies at time of discharge. ADVANCE DIRECTIVES: There were no advance directives on file, and patient was full code during this hospitalization. The following psychotropic medication treatment informed consent and recommendations were provided to the patient at time of discharge. Patient reports she understands, accepts, and agrees to the information that has been provided. PSYCHOTROPIC MEDICATION TREATMENT INFORMED CONSENT and RECOMMENDATIONS: Review nature of condition, diagnosis, and prognosis. Review nature and purpose of psychotropic medication treatment. Review type of psychotropic medications being prescribed. Review risk and benefits of psychotropic medication treatment. Review probable length of time will need to take medications. Review risk and benefits of not undergoing psychotropic medication treatment. Review alternative treatments to psychotropic medications. Review psychotropic medications contraindications, side effects, and importance of reporting any side effects to a psychiatric provider, primary care provider, or other health patient care representative. Review importance of her asking a psychiatric provider or primary care provider any questions or problems concerning the psychotropic medications. Review importance of reporting to a psychiatric provider, primary care provider, or other health patient care representative if she plans to or becomes . Review safety plan and the importance to contact [facility] or [facility] , or go to the nearest emergency room, if ever a danger to yourself/others, or unable to care for yourself. Recommend upon discharge to establish routine medication management treatment with a psychiatric provider, establish routine therapy appointments, and follow-up with a primary care provider. Verify patient understands, accepts, and agrees to the information that has been provided. /[id number]/MODL MTDD
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
== END 2019-01-25 14:55 | disposition home or self-care (01) | DRG 885 ==
LOC: EDUNIT# → BBEH 01-24 10:38
PROVIDERS: ADMIT Registered Nurse; ATTEND Psychiatry & Neurology Psychiatry
DX: F33.2 Major depressive disorder, recurrent severe without psychotic features (principal); R45.851 Suicidal ideations; F10.920 Alcohol use, unspecified with intoxication, uncomplicated; F43.12 Post-traumatic stress disorder, chronic; F41.8 Other specified anxiety disorders
CPT/HCPCS: 80305; 82435-PO; 82565-PO; 82947-PO; 84132-PO; 84295-PO; 84520-PO; 85014-ER; G0480